=== PATIENT | male | born 1995 | race Caucasian/White ===

== ENCOUNTER → 2023-11-06 14:52 | Outpatient (CLI) | payer OTHER, SELFPAY ==
--- NOTE | 2023-11-06 14:54 | DI.RAD.S_ITS ---
PROCEDURE: XR HAND LT MIN 3V INDICATIONS: Left hand injury TECHNIQUE: 3 views of the hand(s) acquired. COMPARISON: [facility], CR, XR WRIST LT MIN 3V, 11/06/2023, 14:55. FINDINGS: Bones: No fractures or dislocations. Carpal bones are normally aligned. Small lucency in the proximal scaphoid measuring 4 mm with no cortical breakthrough or periosteal reaction. No suspicious bony lesions. Soft tissues: No suspicious soft tissue calcifications. IMPRESSION: 1. No acute bony abnormality. If clinical symptoms persist, consider repeat radiograph in 10-14 days versus cross-sectional imaging. 2. Small lucency in the proximal scaphoid measuring 4 mm may represent an intraosseous benign cyst. No suspicious bony lesions. Dictated by: Dirk Rodney M.D. on 11/06/2023 at 16:25 Approved by: Dirk Rodney M.D. on 11/06/2023 at 16:26
--- NOTE | 2023-11-06 14:54 | DI.RAD.S_ITS ---
PROCEDURE: XR WRIST LT MIN 3V INDICATIONS: Left hand injury TECHNIQUE: 4 views of the wrist were acquired. COMPARISON: None. FINDINGS: Bones: No fractures or dislocations. No suspicious bony lesions. Soft tissues: No suspicious soft tissue calcifications. IMPRESSION: 1. No acute bony abnormality. If clinical symptoms persist, consider repeat radiograph in 10-14 days versus cross-sectional imaging. 2. Please see same day hand radiograph for additional findings. Dictated by: Dirk Rodney M.D. on 11/06/2023 at 16:26 Approved by: Dirk Rodney M.D. on 11/06/2023 at 16:27
== END ==
PROVIDERS: Referring Provider Physician Assistant Surgical; Visit Provider Physician Assistant Surgical
DX: S69.92XA Unspecified injury of left wrist, hand and finger(s), initial encounter; X58.XXXA Exposure to other specified factors, initial encounter
CPT/HCPCS: 73110; 73130